=== PATIENT | male | born 1950 | race Caucasian/White ===

== ENCOUNTER → 2016-10-09 | Outpatient (CLI) | payer MEDICARE, OTHER ==
[2016-10-09 06:47] LABS: INR 3.36
== END ==
LOC: M LAB 06:08
PROVIDERS: ATTEND Physician Assistant
DX: Q23.1 Congenital insufficiency of aortic valve (principal); Z95.2 Presence of prosthetic heart valve; Z79.01 Long term (current) use of anticoagulants; Z51.81 Encounter for therapeutic drug level monitoring

== ENCOUNTER → 2016-11-20 | Outpatient (CLI) | payer MEDICARE, OTHER ==
[2016-11-20 08:10] LABS: INR 2.02
== END ==
LOC: M LAB 07:15
PROVIDERS: ATTEND Nurse Practitioner Family
DX: I35.1 Nonrheumatic aortic (valve) insufficiency (principal); Z95.2 Presence of prosthetic heart valve; Z51.81 Encounter for therapeutic drug level monitoring; Z79.01 Long term (current) use of anticoagulants

== ENCOUNTER → 2016-12-04 | Outpatient (CLI) | payer MEDICARE, OTHER | LOC: M LAB 06:26 | PROVIDERS: ATTEND Nurse Practitioner Family | DX: Q23.1 Congenital insufficiency of aortic valve (principal); Z95.2 Presence of prosthetic heart valve ==

== ENCOUNTER → 2017-01-11 | Outpatient (CLI) | payer MEDICARE, OTHER ==
[2017-01-11 06:49] LABS: INR 3.17
== END ==
LOC: M LAB 06:21
PROVIDERS: ATTEND Nurse Practitioner Family
DX: Q23.1 Congenital insufficiency of aortic valve (principal); Z95.2 Presence of prosthetic heart valve

== ENCOUNTER → 2017-02-13 | Outpatient (CLI) | payer MEDICARE, OTHER ==
[2017-02-13 15:08] LABS: INR 2.54
== END ==
LOC: M LAB 13:47
PROVIDERS: ATTEND Physician Assistant
DX: Q23.1 Congenital insufficiency of aortic valve (principal)

== ENCOUNTER → 2017-03-20 | Outpatient (CLI) | payer MEDICARE, OTHER ==
[2017-03-20 07:05] LABS: MEAN CORPUSCULAR HEMOGLOBIN 30.5 pg (27.0-33.0); MEAN CORPUSCULAR HGB CONC 33.6 g/dl (32.0-36.5); MEAN CORPUSCULAR VOLUME 90.8 fl (80.0-96.0); RED CELL DISTRIBUTION WIDTH 14.1 % (11.5-14.5); WHITE BLOOD COUNT 5.5 K/mm3 (4.0-10.0)
[2017-03-20 07:27] LABS: ALBUMIN/GLOBULIN RATIO 1.48 (1.00-1.93); ALKALINE PHOSPHATASE 47 U/L (45-117); ALT/SGPT 43 U/L (12-78); ANION GAP 4 MEQ/L (8-16); AST/SGOT 24 U/L (15-37); BILIRUBIN,TOTAL 0.6 MG/DL (0.2-1.0); BLOOD UREA NITROGEN 21 MG/DL (7-18); CALCIUM LEVEL 8.9 MG/DL (8.8-10.2); CARBON DIOXIDE LEVEL 30 MEQ/L (21-32); CHLORIDE LEVEL 103 MEQ/L (98-107); CHOLESTEROL LEVEL 203 MG/DL (<200); CREATININE FOR GFR 0.93 MG/DL (0.70-1.30); GLOMERULAR FILTRATION RATE > 60.0 (>49); GLUCOSE, FASTING 107 MG/DL (80-110); POTASSIUM SERUM 4.3 MEQ/L (3.5-5.1); SODIUM LEVEL 137 MEQ/L (136-145); TOTAL PROTEIN 6.7 GM/DL (6.4-8.2); TRIGLYCERIDES LEVEL 149 MG/DL (<150)
== END ==
LOC: M LAB 06:16
PROVIDERS: ATTEND Physician Assistant
DX: I11.9 Hypertensive heart disease without heart failure (principal); E78.00 Pure hypercholesterolemia, unspecified; Q23.1 Congenital insufficiency of aortic valve; Z79.01 Long term (current) use of anticoagulants

== ENCOUNTER → 2017-04-16 | Outpatient (CLI) | payer MEDICARE, OTHER ==
[2017-04-16 06:51] LABS: INR 1.57
== END ==
LOC: M LAB 06:08
PROVIDERS: ATTEND Physician Assistant
DX: Z95.2 Presence of prosthetic heart valve (principal)

== ENCOUNTER → 2017-04-24 | Outpatient (CLI) | payer MEDICARE, OTHER ==
[2017-04-24 06:46] LABS: INR 2.27
== END ==
LOC: M LAB 06:03
PROVIDERS: ATTEND Nurse Practitioner Family
DX: Q23.1 Congenital insufficiency of aortic valve (principal)

== ENCOUNTER → 2017-05-15 | Outpatient (CLI) | payer MEDICARE, OTHER ==
[2017-05-15 10:07] LABS: INR 3.05
== END ==
LOC: M LAB 09:21
PROVIDERS: ATTEND Nurse Practitioner Family
DX: Q23.1 Congenital insufficiency of aortic valve (principal); Z95.2 Presence of prosthetic heart valve; Z79.01 Long term (current) use of anticoagulants

== ENCOUNTER → 2017-06-28 | Outpatient (CLI) | payer MEDICARE, OTHER ==
[2017-06-28 06:57] LABS: INR 2.25
== END ==
LOC: M LAB 06:13
PROVIDERS: ATTEND Nurse Practitioner Family
DX: Q23.1 Congenital insufficiency of aortic valve (principal)

== ENCOUNTER → 2017-07-12 | Outpatient (CLI) | payer MEDICARE, OTHER ==
[2017-07-12 08:00] LABS: INR 2.65
== END ==
LOC: M LAB 07:05
PROVIDERS: ATTEND Physician Assistant
DX: Q23.1 Congenital insufficiency of aortic valve (principal)

== ENCOUNTER → 2017-08-16 | Outpatient (CLI) | payer MEDICARE, OTHER ==
[2017-08-16 07:52] LABS: INR 2.24
== END ==
LOC: M LAB 06:28
PROVIDERS: ATTEND Physician Assistant
DX: Q23.1 Congenital insufficiency of aortic valve (principal); Z95.2 Presence of prosthetic heart valve; R31.9 Hematuria, unspecified

== ENCOUNTER → 2017-08-16 | Outpatient (REF) | payer MEDICARE, OTHER | LOC: M LAB REF 09:09 | PROVIDERS: ATTEND Emergency Medicine | DX: R31.9 Hematuria, unspecified (principal) ==

== ENCOUNTER → 2017-08-20 | Outpatient (CLI) | payer MEDICARE, OTHER ==
[2017-08-20 06:32] LABS: INR 1.83
== END ==
LOC: M LAB 06:10
PROVIDERS: ATTEND Physician Assistant
DX: Q23.1 Congenital insufficiency of aortic valve (principal); Z95.2 Presence of prosthetic heart valve

== ENCOUNTER → 2017-09-09 | Outpatient (CLI) | payer MEDICARE, OTHER ==
[2017-09-09 07:31] LABS: MEAN CORPUSCULAR HEMOGLOBIN 29.8 pg (27.0-33.0); MEAN CORPUSCULAR VOLUME 90.4 fl (80.0-96.0); PLATELET COUNT, AUTOMATED 195 10^3/uL (150-450); RED CELL DISTRIBUTION WIDTH 14.2 % (11.5-14.5); WHITE BLOOD COUNT 5.1 10^3/uL (4.0-10.0)
[2017-09-09 07:44] LABS: INR 2.32
[2017-09-09 07:45] LABS: ALBUMIN 4.2 GM/DL (3.2-5.2); ALKALINE PHOSPHATASE 45 U/L (45-117); ALT/SGPT 42 U/L (12-78); ANION GAP 5 MEQ/L (8-16); AST/SGOT 25 U/L (7-37); BILIRUBIN,TOTAL 0.7 MG/DL (0.2-1.0); BLOOD UREA NITROGEN 25 MG/DL (7-18); CALCIUM LEVEL 8.6 MG/DL (8.8-10.2); CARBON DIOXIDE LEVEL 32 MEQ/L (21-32); CHLORIDE LEVEL 105 MEQ/L (98-107); GLOMERULAR FILTRATION RATE > 60.0 (>49); GLUCOSE, FASTING 110 MG/DL (80-110); POTASSIUM SERUM 4.3 MEQ/L (3.5-5.1); SODIUM LEVEL 142 MEQ/L (136-145); TOTAL PROTEIN 7.2 GM/DL (6.4-8.2)
== END ==
LOC: M LAB 06:17
PROVIDERS: ATTEND Physician Assistant
DX: I11.9 Hypertensive heart disease without heart failure (principal); Q23.1 Congenital insufficiency of aortic valve; Z95.2 Presence of prosthetic heart valve; E78.00 Pure hypercholesterolemia, unspecified

== ENCOUNTER → 2017-09-19 | Outpatient (CLI) | payer MEDICARE, OTHER ==
[2017-09-19 07:19] LABS: INR 1.88
== END ==
LOC: M LAB 06:24
PROVIDERS: ATTEND Physician Assistant
DX: Z95.2 Presence of prosthetic heart valve (principal)

== ENCOUNTER → 2018-01-21 | Outpatient (CLI) | payer MEDICARE, OTHER ==
[2018-01-21 07:34] LABS: INR 2.21; PROTHROMBIN TIME 25.3 SECONDS (12.4-14.5)
== END ==
LOC: M LAB 06:54
DX: Z51.81 Encounter for therapeutic drug level monitoring (principal); Z79.01 Long term (current) use of anticoagulants; Z95.2 Presence of prosthetic heart valve
CPT/HCPCS: 85610

== ENCOUNTER → 2018-02-04 | Outpatient (CLI) | payer MEDICARE, OTHER ==
[2018-02-04 07:18] LABS: INR 2.44; PROTHROMBIN TIME 27.5 SECONDS (12.4-14.5)
== END ==
LOC: M LAB 06:26
DX: Z51.81 Encounter for therapeutic drug level monitoring (principal); Z79.01 Long term (current) use of anticoagulants; Z95.2 Presence of prosthetic heart valve
CPT/HCPCS: 85610

== ENCOUNTER → 2018-02-20 | Outpatient (CLI) | payer MEDICARE, OTHER ==
[2018-02-20 06:32] LABS: INR 3.63
== END ==
LOC: M LAB 06:04
DX: Z95.2 Presence of prosthetic heart valve (principal); Z79.01 Long term (current) use of anticoagulants
CPT/HCPCS: 85610

== ENCOUNTER → 2018-03-07 | Outpatient (CLI) | payer MEDICARE, OTHER ==
[2018-03-07 06:33] LABS: HEMATOCRIT 42.8 % (42.0-52.0); MEAN CORPUSCULAR HEMOGLOBIN 29.5 pg (27.0-33.0); MEAN CORPUSCULAR HGB CONC 32.7 g/dl (32.0-36.5); MEAN CORPUSCULAR VOLUME 90.1 fl (80.0-96.0); PLATELET COUNT, AUTOMATED 225 10^3/uL (150-450); RED BLOOD COUNT 4.75 10^6/uL (4.30-6.10); WHITE BLOOD COUNT 7.8 10^3/uL (4.0-10.0)
[2018-03-07 06:41] LABS: PROTHROMBIN TIME 36.8 SECONDS (12.4-14.5)
[2018-03-07 07:02] LABS: ALBUMIN 4.2 GM/DL (3.2-5.2); ALBUMIN/GLOBULIN RATIO 1.45 (1.00-1.93); ALKALINE PHOSPHATASE 51 U/L (45-117); ALT/SGPT 58 U/L (12-78); ANION GAP 6 MEQ/L (8-16); AST/SGOT 31 U/L (7-37); BILIRUBIN,TOTAL 0.8 MG/DL (0.2-1.0); BLOOD UREA NITROGEN 30 MG/DL (7-18); CALCIUM LEVEL 8.5 MG/DL (8.8-10.2); CARBON DIOXIDE LEVEL 28 MEQ/L (21-32); CHLORIDE LEVEL 105 MEQ/L (98-107); CHOLESTEROL LEVEL 201 MG/DL (<200); CHOLESTEROL RISK RATIO 3.941 (<5); CREATININE FOR GFR 1.09 MG/DL (0.70-1.30); GLOMERULAR FILTRATION RATE > 60.0 (>49); GLUCOSE, FASTING 108 MG/DL (70-100); HDL CHOLESTEROL 51 MG/DL (>40); LDL CHOLESTEROL 114.8 MG/DL (<100); NON-HDL-C 150 MG/DL; POTASSIUM SERUM 4.4 MEQ/L (3.5-5.1); SODIUM LEVEL 139 MEQ/L (136-145); TOTAL PROTEIN 7.1 GM/DL (6.4-8.2); TRIGLYCERIDES LEVEL 176 MG/DL (<150)
== END ==
LOC: M LAB 06:07
DX: I11.9 Hypertensive heart disease without heart failure (principal); E78.00 Pure hypercholesterolemia, unspecified; Z79.01 Long term (current) use of anticoagulants
CPT/HCPCS: 80053

== ENCOUNTER → 2018-03-10 | Outpatient (CLI) | payer MEDICARE, OTHER ==
[2018-03-10 07:22] LABS: INR 4.13; PROTHROMBIN TIME 42.1 SECONDS (12.4-14.5)
== END ==
LOC: M LAB 06:32
DX: Z95.2 Presence of prosthetic heart valve (principal)
CPT/HCPCS: 85610

== ENCOUNTER → 2018-03-18 | Outpatient (CLI) | payer MEDICARE, OTHER ==
[2018-03-18 07:28] LABS: INR 1.65
== END ==
LOC: M LAB 06:16
DX: Z95.2 Presence of prosthetic heart valve (principal)
CPT/HCPCS: 85610

== ENCOUNTER → 2018-03-25 | Outpatient (CLI) | payer MEDICARE, OTHER ==
[2018-03-25 07:18] LABS: INR 2.18; PROTHROMBIN TIME 25.1 SECONDS (12.4-14.5)
== END ==
LOC: M LAB 06:23
DX: Z95.2 Presence of prosthetic heart valve (principal)
CPT/HCPCS: 85610

== ENCOUNTER → 2018-04-01 | Outpatient (CLI) | payer MEDICARE, OTHER ==
[2018-04-01 07:12] LABS: INR 2.17
== END ==
LOC: M LAB 06:14
DX: Z95.2 Presence of prosthetic heart valve (principal)
CPT/HCPCS: 85610

== ENCOUNTER → 2018-04-14 | Outpatient (CLI) | payer MEDICARE, OTHER ==
[2018-04-14 07:07] LABS: INR 2.17; PROTHROMBIN TIME 24.6 SECONDS (12.1-14.4)
== END ==
LOC: M LAB 06:09
DX: Z95.2 Presence of prosthetic heart valve (principal)
CPT/HCPCS: 85610

== ENCOUNTER → 2018-05-07 | Outpatient (CLI) | payer MEDICARE, OTHER ==
[2018-05-07 07:10] LABS: INR 2.79
== END ==
LOC: M LAB 06:13
DX: Z79.01 Long term (current) use of anticoagulants (principal)
CPT/HCPCS: 85610

== ENCOUNTER → 2018-06-12 | Outpatient (CLI) | payer MEDICARE, OTHER ==
[2018-06-12 07:30] LABS: INR 2.32
== END ==
LOC: M LAB 06:23
DX: Z95.2 Presence of prosthetic heart valve (principal)
CPT/HCPCS: 85610

== ENCOUNTER 2018-06-27 08:49 | Day surgery (SDC) | payer MEDICARE, OTHER ==
[2018-06-26] MEDS: AMPICILLIN SOD 2 GM in D5W MINI-BAG PLUS 100 ML IV (09:20)
[2018-06-27] MEDS: NS 1,000 ML IV (06:00)
[2018-06-27] MEDS ORDERED: AMPICILLIN 2 GM VIAL As Ordered (09:19)
[2018-06-27] MEDS ORDERED: GENTAMICIN SULF INJ 80MG/2ML VIAL (J1580) As Ordered (09:20)
[2018-06-27] MEDS ORDERED: LIDOCAINE 2% INJ 100 MG/5 ML SDV (FOR ANES.) As Ordered (09:21)
[2018-06-27] MEDS ORDERED: PROPOFOL 200 MG/20 ML VIAL As Ordered (09:21)
[2018-06-27] MEDS: GENTAMICIN 80 MG in APPROPRIATE DILUENT 1 EA IV (09:54)
== END 2018-06-27 11:10 | disposition home or self-care (01) ==
LOC: M OPP 08:49
DX: Z12.11 Encounter for screening for malignant neoplasm of colon (principal); K62.1 Rectal polyp; D12.5 Benign neoplasm of sigmoid colon; D12.3 Benign neoplasm of transverse colon; K64.0 First degree hemorrhoids; E78.5 Hyperlipidemia, unspecified; Z95.2 Presence of prosthetic heart valve; K21.9 Gastro-esophageal reflux disease without esophagitis; R12 Heartburn; Z86.718 Personal history of other venous thrombosis and embolism; R06.02 Shortness of breath; M19.90 Unspecified osteoarthritis, unspecified site; R06.83 Snoring; Z87.891 Personal history of nicotine dependence; Z79.82 Long term (current) use of aspirin; Z79.899 Other long term (current) drug therapy; Z79.01 Long term (current) use of anticoagulants
CPT/HCPCS: 45385

== ENCOUNTER → 2018-07-03 | Outpatient (CLI) | payer MEDICARE, OTHER ==
[2018-07-03 06:41] LABS: INR 1.37; PROTHROMBIN TIME 17.1 SECONDS (12.1-14.4)
== END ==
LOC: M LAB 06:10
DX: Z51.81 Encounter for therapeutic drug level monitoring (principal); Z79.01 Long term (current) use of anticoagulants; Z95.2 Presence of prosthetic heart valve
CPT/HCPCS: 85610

== ENCOUNTER → 2018-07-15 | Outpatient (CLI) | payer MEDICARE, OTHER ==
[2018-07-15 07:19] LABS: INR 1.79; PROTHROMBIN TIME 21.1 SECONDS (12.1-14.4)
== END ==
LOC: M LAB 06:23
DX: Z95.2 Presence of prosthetic heart valve (principal)
CPT/HCPCS: 85610

== ENCOUNTER → 2018-07-22 | Outpatient (CLI) | payer MEDICARE, OTHER ==
[2018-07-22 07:14] LABS: INR 2.52; PROTHROMBIN TIME 27.7 SECONDS (12.1-14.4)
== END ==
LOC: M LAB 06:14
DX: Z95.2 Presence of prosthetic heart valve (principal)
CPT/HCPCS: 85610

== ENCOUNTER → 2018-08-08 | Outpatient (CLI) | payer MEDICARE, OTHER ==
[2018-08-08 07:38] LABS: INR 2.49; PROTHROMBIN TIME 27.4 SECONDS (12.1-14.4)
== END ==
LOC: M LAB 06:15
DX: Z95.2 Presence of prosthetic heart valve (principal); Z79.01 Long term (current) use of anticoagulants
CPT/HCPCS: 85610

== ENCOUNTER → 2018-09-02 | Outpatient (CLI) | payer MEDICARE, OTHER ==
[2018-09-02 07:20] LABS: INR 2.25; PROTHROMBIN TIME 25.3 SECONDS (12.1-14.4)
== END ==
LOC: M LAB 06:36
DX: Z95.2 Presence of prosthetic heart valve (principal)
CPT/HCPCS: 85610

== ENCOUNTER → 2018-09-11 | Outpatient (CLI) | payer MEDICARE, OTHER ==
[2018-09-11 06:53] LABS: HEMATOCRIT 41.4 % (42.0-52.0); HEMOGLOBIN 13.7 g/dl (13.5-17.5); MEAN CORPUSCULAR HGB CONC 33.1 g/dl (32.0-36.5); MEAN CORPUSCULAR VOLUME 90.8 fl (80.0-96.0); PLATELET COUNT, AUTOMATED 182 10^3/uL (150-450); RED BLOOD COUNT 4.56 10^6/uL (4.30-6.10); WHITE BLOOD COUNT 6.7 10^3/uL (4.0-10.0)
[2018-09-11 07:02] LABS: PROTHROMBIN TIME 33.5 SECONDS (12.1-14.4)
[2018-09-11 07:22] LABS: ANION GAP 8 MEQ/L (8-16); BLOOD UREA NITROGEN 30 MG/DL (7-18); CALCIUM LEVEL 8.1 MG/DL (8.8-10.2); CARBON DIOXIDE LEVEL 27 MEQ/L (21-32); CHLORIDE LEVEL 106 MEQ/L (98-107); CREATININE FOR GFR 1.01 MG/DL (0.70-1.30); GLOMERULAR FILTRATION RATE > 60.0 (>49); GLUCOSE, FASTING 107 MG/DL (70-100); POTASSIUM SERUM 4.4 MEQ/L (3.5-5.1); SODIUM LEVEL 141 MEQ/L (136-145)
== END ==
LOC: M LAB 06:14
DX: Z51.81 Encounter for therapeutic drug level monitoring (principal); Z79.01 Long term (current) use of anticoagulants; I11.9 Hypertensive heart disease without heart failure; Q23.1 Congenital insufficiency of aortic valve; Z95.2 Presence of prosthetic heart valve
CPT/HCPCS: 80048

== ENCOUNTER → 2018-10-14 | Outpatient (CLI) | payer MEDICARE, OTHER ==
[~2018-10-14] MED LIST: ASPI1TAB PO; COUM1TAB17 PO; COUM7.5T PO; LISI40TA PO; LOVA10TA PO
[2018-10-14 07:01] LABS: INR 2.21; PROTHROMBIN TIME 24.9 SECONDS (12.1-14.4)
== END ==
LOC: M LAB 06:16
PROVIDERS: ATTEND Physician Assistant
DX: Z51.81 Encounter for therapeutic drug level monitoring (principal); Z79.01 Long term (current) use of anticoagulants; Z95.2 Presence of prosthetic heart valve

== ENCOUNTER → 2019-01-29 | Outpatient (CLI) | payer MEDICARE, OTHER ==
[~2019-01-29] MED LIST changes: -ASPI1TAB PO; +ASPI81TA26 PO
[2019-01-29 07:01] LABS: INR 2.55
== END ==
LOC: M LAB 06:24
PROVIDERS: ATTEND Physician Assistant
DX: Z95.2 Presence of prosthetic heart valve (principal); Z79.01 Long term (current) use of anticoagulants

== ENCOUNTER → 2019-03-06 | Outpatient (CLI) | payer MEDICARE, OTHER ==
[2019-03-06 07:33] LABS: INR 3.11; PROTHROMBIN TIME 32.7 SECONDS (12.1-14.4)
== END ==
LOC: M LAB 06:37
PROVIDERS: ATTEND Physician Assistant
DX: Z95.2 Presence of prosthetic heart valve (principal); Z79.01 Long term (current) use of anticoagulants

== ENCOUNTER → 2019-03-27 | Outpatient (CLI) | payer MEDICARE, OTHER ==
[2019-03-27 07:02] LABS: HEMATOCRIT 43.2 % (42.0-52.0); HEMOGLOBIN 14.2 g/dl (13.5-17.5); MEAN CORPUSCULAR HEMOGLOBIN 29.6 pg (27.0-33.0); MEAN CORPUSCULAR HGB CONC 32.9 g/dl (32.0-36.5); PLATELET COUNT, AUTOMATED 198 10^3/uL (150-450); WHITE BLOOD COUNT 5.1 10^3/uL (4.0-10.0)
[2019-03-27 07:26] LABS: ALT/SGPT 42 U/L (12-78); BILIRUBIN,TOTAL 0.6 MG/DL (0.2-1.0); BLOOD UREA NITROGEN 25 MG/DL (7-18); CALCIUM LEVEL 8.8 MG/DL (8.8-10.2); CARBON DIOXIDE LEVEL 30 MEQ/L (21-32); CHLORIDE LEVEL 105 MEQ/L (98-107); CHOLESTEROL LEVEL 196 MG/DL (<200); CHOLESTEROL RISK RATIO 3.698 (<5); CREATININE FOR GFR 1.21 MG/DL (0.70-1.30); GLOMERULAR FILTRATION RATE > 60.0 (>49); GLUCOSE, FASTING 104 MG/DL (70-100); HDL CHOLESTEROL 53 MG/DL (>40); LDL CHOLESTEROL 107 MG/DL (<100); NON-HDL-C 143 MG/DL; POTASSIUM SERUM 4.3 MEQ/L (3.5-5.1); SODIUM LEVEL 142 MEQ/L (136-145); TRIGLYCERIDES LEVEL 180 MG/DL (<150)
== END ==
LOC: M LAB 06:09
PROVIDERS: ATTEND Physician Assistant
DX: I11.9 Hypertensive heart disease without heart failure (principal); E78.00 Pure hypercholesterolemia, unspecified; Z95.2 Presence of prosthetic heart valve; Z79.01 Long term (current) use of anticoagulants

== ENCOUNTER → 2019-04-01 | Outpatient (CLI) | payer MEDICARE, OTHER ==
[2019-04-01 07:09] LABS: INR 2.84; PROTHROMBIN TIME 29.7 SECONDS (11.8-14.0)
== END ==
LOC: M LAB 06:07
PROVIDERS: ATTEND Physician Assistant
DX: Z95.2 Presence of prosthetic heart valve (principal); Z79.01 Long term (current) use of anticoagulants

== ENCOUNTER → 2019-05-05 | Outpatient (CLI) | payer MEDICARE, OTHER ==
[2019-05-05 07:18] LABS: INR 3.96; PROTHROMBIN TIME 38.8 SECONDS (11.8-14.0)
== END ==
LOC: M LAB 06:25
PROVIDERS: ATTEND Physician Assistant
DX: Z95.2 Presence of prosthetic heart valve (principal)

== ENCOUNTER → 2019-05-14 | Outpatient (CLI) | payer MEDICARE, OTHER ==
[2019-05-14 07:13] LABS: INR 2.64
== END ==
LOC: M LAB 06:10
PROVIDERS: ATTEND Physician Assistant
DX: Z79.01 Long term (current) use of anticoagulants (principal); Z95.2 Presence of prosthetic heart valve

== ENCOUNTER → 2019-06-11 | Outpatient (CLI) | payer MEDICARE, OTHER ==
[2019-06-11 07:20] LABS: INR 3.13; PROTHROMBIN TIME 32.1 SECONDS (11.8-14.0)
== END ==
LOC: M LAB 06:09
PROVIDERS: ATTEND Physician Assistant
DX: Z95.2 Presence of prosthetic heart valve (principal)

== ENCOUNTER → 2019-07-21 | Outpatient (CLI) | payer MEDICARE, OTHER ==
[2019-07-21 06:48] LABS: INR 2.94; PROTHROMBIN TIME 30.6 SECONDS (11.8-14.0)
== END ==
LOC: M LAB 06:06
PROVIDERS: ATTEND Physician Assistant
DX: Z95.2 Presence of prosthetic heart valve (principal); Z79.01 Long term (current) use of anticoagulants

== ENCOUNTER → 2019-08-17 | Outpatient (CLI) | payer MEDICARE, OTHER ==
[2019-08-17 07:39] LABS: INR 2.68; PROTHROMBIN TIME 28.4 SECONDS (11.8-14.0)
== END ==
LOC: M LAB 06:10
PROVIDERS: ATTEND Physician Assistant
DX: Z51.81 Encounter for therapeutic drug level monitoring (principal); Z79.01 Long term (current) use of anticoagulants; Z95.2 Presence of prosthetic heart valve

== ENCOUNTER → 2020-01-01 | Outpatient (CLI) | payer MEDICARE, OTHER ==
[2020-01-01 07:05] LABS: INR 2.58; PROTHROMBIN TIME 27.6 SECONDS (11.8-14.0)
== END ==
LOC: M LAB 06:15
PROVIDERS: ATTEND Physician Assistant
DX: Z79.01 Long term (current) use of anticoagulants (principal)

== ENCOUNTER → 2020-02-02 | Outpatient (CLI) | payer MEDICARE, OTHER ==
[2020-02-02 07:24] LABS: INR 2.96; PROTHROMBIN TIME 30.7 SECONDS (11.8-14.0)
== END ==
LOC: M LAB 06:44
PROVIDERS: ATTEND Physician Assistant
DX: Z51.81 Encounter for therapeutic drug level monitoring (principal); Z95.2 Presence of prosthetic heart valve; Z79.01 Long term (current) use of anticoagulants

== ENCOUNTER → 2020-03-03 | Outpatient (CLI) | payer MEDICARE, OTHER ==
[2020-03-03 06:49] LABS: INR 2.55; PROTHROMBIN TIME 27.3 SECONDS (11.8-14.0)
== END ==
LOC: M LAB 06:14
PROVIDERS: ATTEND Physician Assistant
DX: Z95.2 Presence of prosthetic heart valve (principal); Z79.01 Long term (current) use of anticoagulants

== ENCOUNTER → 2020-03-08 | Outpatient (CLI) | payer MEDICARE, OTHER ==
[~2020-03-08] MED LIST changes: -COUM7.5T PO; +COUM7.5T6 PO
[2020-03-08 07:12] LABS: HEMATOCRIT 42.7 % (42.0-52.0); HEMOGLOBIN 14.1 g/dl (13.5-17.5); MEAN CORPUSCULAR HEMOGLOBIN 29.9 pg (27.0-33.0); MEAN CORPUSCULAR VOLUME 90.5 fl (80.0-96.0); PLATELET COUNT, AUTOMATED 206 10^3/uL (150-450); RED BLOOD COUNT 4.72 10^6/uL (4.30-6.10); WHITE BLOOD COUNT 5.3 10^3/uL (4.0-10.0)
[2020-03-08 07:43] LABS: ALBUMIN 4.2 GM/DL (3.2-5.2); ALT/SGPT 50 U/L (12-78); BILIRUBIN,TOTAL 0.7 MG/DL (0.2-1.0); BLOOD UREA NITROGEN 23 MG/DL (7-18); CALCIUM LEVEL 8.7 MG/DL (8.8-10.2); CARBON DIOXIDE LEVEL 29 MEQ/L (21-32); CHLORIDE LEVEL 106 MEQ/L (98-107); CHOLESTEROL LEVEL 212 MG/DL (<200); CHOLESTEROL RISK RATIO 3.719 (<5); CREATININE FOR GFR 0.94 MG/DL (0.70-1.30); GLOMERULAR FILTRATION RATE > 60.0 (>49); GLUCOSE, FASTING 113 MG/DL (70-100); HDL CHOLESTEROL 57 MG/DL (>40); LDL CHOLESTEROL 121 MG/DL (<100); NON-HDL-C 155 MG/DL; POTASSIUM SERUM 4.4 MEQ/L (3.5-5.1); SODIUM LEVEL 138 MEQ/L (136-145); TRIGLYCERIDES LEVEL 171 MG/DL (<150)
== END ==
LOC: M LAB 06:47
PROVIDERS: ATTEND Physician Assistant
DX: Q23.1 Congenital insufficiency of aortic valve (principal); Z95.2 Presence of prosthetic heart valve; I11.9 Hypertensive heart disease without heart failure; E78.00 Pure hypercholesterolemia, unspecified

== ENCOUNTER → 2020-04-22 | Outpatient (CLI) | payer MEDICARE, OTHER ==
[2020-04-22 06:44] LABS: INR 2.54; PROTHROMBIN TIME 27.2 SECONDS (11.8-14.0)
== END ==
LOC: M LAB 06:08
PROVIDERS: ATTEND Physician Assistant
DX: Q23.1 Congenital insufficiency of aortic valve (principal); Z95.2 Presence of prosthetic heart valve; Z79.01 Long term (current) use of anticoagulants

== ENCOUNTER → 2020-05-25 | Outpatient (CLI) | payer MEDICARE, OTHER ==
[2020-05-25 07:28] LABS: INR 3.15; PROTHROMBIN TIME 33.1 SECONDS (11.8-14.0)
== END ==
LOC: M LAB 06:40
PROVIDERS: ATTEND Physician Assistant
DX: Q23.1 Congenital insufficiency of aortic valve (principal); Z95.2 Presence of prosthetic heart valve; Z79.01 Long term (current) use of anticoagulants

== ENCOUNTER → 2020-06-15 | Outpatient (CLI) | payer MEDICARE, OTHER ==
[2020-06-15 07:21] LABS: INR 3.14
== END ==
LOC: M LAB 06:18
PROVIDERS: ATTEND Physician Assistant
DX: Q23.1 Congenital insufficiency of aortic valve (principal); Z95.2 Presence of prosthetic heart valve; Z79.01 Long term (current) use of anticoagulants

== ENCOUNTER → 2020-07-15 | Outpatient (CLI) | payer MEDICARE, OTHER ==
[2020-07-15 07:33] LABS: INR 3.04; PROTHROMBIN TIME 32.1 SECONDS (12.5-14.3)
== END ==
LOC: M LAB 06:13
PROVIDERS: ATTEND Physician Assistant
DX: Q23.1 Congenital insufficiency of aortic valve (principal); Z95.2 Presence of prosthetic heart valve; Z79.01 Long term (current) use of anticoagulants

== ENCOUNTER → 2020-08-29 | Outpatient (CLI) | payer MEDICARE, OTHER ==
[2020-08-29 12:09] LABS: HEMATOCRIT 43.9 % (42.0-52.0); HEMOGLOBIN 14.2 g/dl (13.5-17.5); MEAN CORPUSCULAR HEMOGLOBIN 30.1 pg (27.0-33.0); MEAN CORPUSCULAR HGB CONC 32.3 g/dl (32.0-36.5); PLATELET COUNT, AUTOMATED 207 10^3/uL (150-450); RED BLOOD COUNT 4.72 10^6/uL (4.30-6.10); WHITE BLOOD COUNT 5.8 10^3/uL (4.0-10.0)
[2020-08-29 12:19] LABS: INR 4.02; PROTHROMBIN TIME 40.1 SECONDS (12.5-14.3)
[2020-08-29 12:35] LABS: BLOOD UREA NITROGEN 21 MG/DL (7-18); CALCIUM LEVEL 9.5 MG/DL (8.8-10.2); CARBON DIOXIDE LEVEL 32 MEQ/L (21-32); CHLORIDE LEVEL 106 MEQ/L (98-107); CREATININE FOR GFR 1.03 MG/DL (0.70-1.30); GLOMERULAR FILTRATION RATE > 60.0 (>49); GLUCOSE, FASTING 96 MG/DL (70-100); POTASSIUM SERUM 4.5 MEQ/L (3.5-5.1); SODIUM LEVEL 140 MEQ/L (136-145)
== END ==
LOC: M LAB 11:18
PROVIDERS: ATTEND Physician Assistant
DX: I11.9 Hypertensive heart disease without heart failure (principal); Z95.2 Presence of prosthetic heart valve

== ENCOUNTER → 2020-09-05 | Outpatient (CLI) | payer MEDICARE, OTHER ==
[2020-09-05 07:17] LABS: INR 2.97; PROTHROMBIN TIME 31.6 SECONDS (12.5-14.3)
== END ==
LOC: M LAB 06:07
PROVIDERS: ATTEND Physician Assistant
DX: Q23.1 Congenital insufficiency of aortic valve (principal); Z95.2 Presence of prosthetic heart valve; Z79.01 Long term (current) use of anticoagulants

== ENCOUNTER → 2020-09-12 | Outpatient (CLI) | payer MEDICARE, OTHER ==
[2020-09-12 07:00] LABS: INR 2.39; PROTHROMBIN TIME 26.6 SECONDS (12.5-14.3)
== END ==
LOC: M LAB 06:32
PROVIDERS: ATTEND Physician Assistant
DX: Q23.1 Congenital insufficiency of aortic valve (principal); Z95.2 Presence of prosthetic heart valve; Z79.01 Long term (current) use of anticoagulants

== ENCOUNTER → 2020-09-27 | Outpatient (CLI) | payer MEDICARE, OTHER ==
[2020-09-27 06:42] LABS: INR 2.05; PROTHROMBIN TIME 23.6 SECONDS (12.5-14.3)
== END ==
LOC: M LAB 06:07
PROVIDERS: ATTEND Physician Assistant
DX: Q23.1 Congenital insufficiency of aortic valve (principal); Z95.2 Presence of prosthetic heart valve; Z79.01 Long term (current) use of anticoagulants

== ENCOUNTER → 2020-10-20 | Outpatient (CLI) | payer SELFPAY | LOC: M LABSMTC 14:05 | PROVIDERS: ATTEND Pediatrics | DX: Z20.822 Contact with and (suspected) exposure to COVID-19 (principal) ==

== ENCOUNTER → 2020-10-26 | Outpatient (CLI) | payer MEDICARE, OTHER ==
[~2020-10-26] MED LIST changes: -LISI40TA PO; +LISI40TA4 PO
[2020-10-26 07:14] LABS: INR 3.23; PROTHROMBIN TIME 33.8 SECONDS (12.5-14.3)
== END ==
LOC: M LAB 06:13
PROVIDERS: ATTEND Physician Assistant
DX: Q23.1 Congenital insufficiency of aortic valve (principal); Z95.2 Presence of prosthetic heart valve; Z79.01 Long term (current) use of anticoagulants

== ENCOUNTER → 2020-11-24 | Outpatient (CLI) | payer MEDICARE, OTHER ==
[2020-11-24 09:30] LABS: INR 2.7; PROTHROMBIN TIME 29.3 SECONDS (12.5-14.3)
== END ==
LOC: M LAB 08:03
PROVIDERS: ATTEND Physician Assistant
DX: Q23.1 Congenital insufficiency of aortic valve (principal); Z95.2 Presence of prosthetic heart valve; Z79.01 Long term (current) use of anticoagulants

== ENCOUNTER → 2020-12-27 | Outpatient (CLI) | payer MEDICARE, OTHER ==
[2020-12-27 07:25] LABS: INR 1.87; PROTHROMBIN TIME 21.9 SECONDS (12.5-14.3)
== END ==
LOC: M LAB 06:22
PROVIDERS: ATTEND Physician Assistant
DX: Q23.1 Congenital insufficiency of aortic valve (principal)

== ENCOUNTER → 2021-01-17 | Outpatient (CLI) | payer MEDICARE, OTHER ==
[2021-01-17 06:44] LABS: INR 2.68; PROTHROMBIN TIME 29.1 SECONDS (12.5-14.3)
== END ==
LOC: M LAB 06:05
PROVIDERS: ATTEND Physician Assistant
DX: Q23.1 Congenital insufficiency of aortic valve (principal); Z79.01 Long term (current) use of anticoagulants; Z95.2 Presence of prosthetic heart valve

== ENCOUNTER → 2021-02-17 | Outpatient (CLI) | payer MEDICARE, OTHER ==
[2021-02-17 06:44] LABS: INR 2.7; PROTHROMBIN TIME 29.3 SECONDS (12.5-14.3)
== END ==
LOC: M LAB 06:01
PROVIDERS: ATTEND Physician Assistant
DX: Z51.81 Encounter for therapeutic drug level monitoring (principal); Z79.01 Long term (current) use of anticoagulants; Q23.1 Congenital insufficiency of aortic valve; Z95.2 Presence of prosthetic heart valve

== ENCOUNTER → 2021-03-23 | Outpatient (CLI) | payer MEDICARE, OTHER ==
[2021-03-23 06:49] LABS: HEMATOCRIT 44.5 % (42.0-52.0); HEMOGLOBIN 14.4 g/dl (13.5-17.5); MEAN CORPUSCULAR HEMOGLOBIN 29.8 pg (27.0-33.0); MEAN CORPUSCULAR HGB CONC 32.4 g/dl (32.0-36.5); MEAN CORPUSCULAR VOLUME 91.9 fl (80.0-96.0); PLATELET COUNT, AUTOMATED 191 10^3/uL (150-450); RED BLOOD COUNT 4.84 10^6/uL (4.30-6.10); WHITE BLOOD COUNT 4.8 10^3/uL (4.0-10.0)
[2021-03-23 07:12] LABS: ALBUMIN 4.2 GM/DL (3.2-5.2); ALT/SGPT 44 U/L (12-78); BILIRUBIN,TOTAL 0.5 MG/DL (0.2-1.0); BLOOD UREA NITROGEN 21 MG/DL (7-18); CALCIUM LEVEL 9.1 MG/DL (8.8-10.2); CARBON DIOXIDE LEVEL 32 MEQ/L (21-32); CHLORIDE LEVEL 108 MEQ/L (98-107); CHOLESTEROL LEVEL 197 MG/DL (<200); CHOLESTEROL RISK RATIO 3.648 (<5); CREATININE FOR GFR 0.99 MG/DL (0.70-1.30); GLOMERULAR FILTRATION RATE > 60.0 (>49); GLUCOSE, FASTING 107 MG/DL (70-100); HDL CHOLESTEROL 54 MG/DL (>40); LDL CHOLESTEROL 109 MG/DL (<100); NON-HDL-C 143 MG/DL; POTASSIUM SERUM 4.6 MEQ/L (3.5-5.1); SODIUM LEVEL 142 MEQ/L (136-145); TRIGLYCERIDES LEVEL 168 MG/DL (<150)
== END ==
LOC: M LAB 06:13
PROVIDERS: ATTEND Physician Assistant
DX: Q23.1 Congenital insufficiency of aortic valve (principal); I11.9 Hypertensive heart disease without heart failure; E78.00 Pure hypercholesterolemia, unspecified; Z95.2 Presence of prosthetic heart valve

== ENCOUNTER → 2021-03-23 | Outpatient (CLI) | payer MEDICARE, OTHER ==
--- NOTE | 2021-03-23 09:57 | REP ---
INDICATION: AAA SCREENING COMPARISON: None. TECHNIQUE: Multiple ultrasonographic images of the abdominal aorta were obtained from the level of the celiac access to the aortoiliac bifurcation and the longitudinal and transverse scan planes along with color Doppler imaging. FINDINGS: The maximal AP dimension of the abdominal aorta as measured in the longitudinal scan plane is 1.9 cm. The proximal most portion of the abdominal aorta was unable to be interrogated by ultrasound due to the patient's intestinal gas pattern. IMPRESSION: No evidence of abdominal aortic aneurysm. Limitations as described above. <Electronically signed by Michael Rincon > 03/23/21 0942
== END ==
LOC: M RAD 06:17
PROVIDERS: ATTEND Family Medicine
DX: Z13.6 Encounter for screening for cardiovascular disorders (principal); F17.210 Nicotine dependence, cigarettes, uncomplicated; Q23.1 Congenital insufficiency of aortic valve; I11.9 Hypertensive heart disease without heart failure; E78.00 Pure hypercholesterolemia, unspecified; Z95.2 Presence of prosthetic heart valve

== ENCOUNTER → 2021-04-24 | Outpatient (CLI) | payer MEDICARE, OTHER ==
[2021-04-24 07:27] LABS: INR 2.95; PROTHROMBIN TIME 31.4 SECONDS (12.5-14.3)
== END ==
LOC: M LAB 06:41
PROVIDERS: ATTEND Physician Assistant
DX: Q23.1 Congenital insufficiency of aortic valve (principal); Z95.2 Presence of prosthetic heart valve; Z79.01 Long term (current) use of anticoagulants

== ENCOUNTER → 2021-05-22 | Outpatient (CLI) | payer MEDICARE, OTHER ==
[2021-05-22 07:02] LABS: INR 2.96; PROTHROMBIN TIME 31.1 SECONDS (12.7-14.5)
== END ==
LOC: M LAB 06:22
PROVIDERS: ATTEND Physician Assistant
DX: Z95.2 Presence of prosthetic heart valve (principal); Z79.01 Long term (current) use of anticoagulants

== ENCOUNTER → 2021-06-19 | Outpatient (CLI) | payer MEDICARE, OTHER ==
[2021-06-19 07:51] LABS: INR 2.82
== END ==
LOC: M LAB 06:26
PROVIDERS: ATTEND Physician Assistant
DX: Z95.2 Presence of prosthetic heart valve (principal); Z79.01 Long term (current) use of anticoagulants

== ENCOUNTER → 2021-07-25 | Outpatient (CLI) | payer MEDICARE, OTHER ==
[2021-07-25 06:57] LABS: INR 2.64; PROTHROMBIN TIME 28.5 SECONDS (12.7-14.5)
== END ==
LOC: M LAB 06:18
PROVIDERS: ATTEND Physician Assistant
DX: Z95.2 Presence of prosthetic heart valve (principal); Z79.01 Long term (current) use of anticoagulants

== ENCOUNTER → 2021-08-22 | Outpatient (CLI) | payer MEDICARE, OTHER ==
[2021-08-22 07:00] LABS: HEMATOCRIT 42.7 % (42.0-52.0); HEMOGLOBIN 14.1 g/dl (13.5-17.5); MEAN CORPUSCULAR HEMOGLOBIN 29.7 pg (27.0-33.0); MEAN CORPUSCULAR VOLUME 90.1 fl (80.0-96.0); PLATELET COUNT, AUTOMATED 184 10^3/uL (150-450); RED BLOOD COUNT 4.74 10^6/uL (4.30-6.10); WHITE BLOOD COUNT 4.6 10^3/uL (4.0-10.0)
[2021-08-22 07:15] LABS: INR 1.72; PROTHROMBIN TIME 20.6 SECONDS (12.7-14.5)
[2021-08-22 07:19] LABS: BLOOD UREA NITROGEN 23 MG/DL (7-18); CALCIUM LEVEL 9.4 MG/DL (8.8-10.2); CARBON DIOXIDE LEVEL 31 MEQ/L (21-32); CHLORIDE LEVEL 105 MEQ/L (98-107); GLOMERULAR FILTRATION RATE > 60.0 (>42); GLUCOSE, FASTING 115 MG/DL (70-100); POTASSIUM SERUM 4.3 MEQ/L (3.5-5.1); SODIUM LEVEL 143 MEQ/L (136-145)
== END ==
LOC: M LAB 06:24
PROVIDERS: ATTEND Physician Assistant
DX: Z95.2 Presence of prosthetic heart valve (principal); Z79.01 Long term (current) use of anticoagulants; I11.9 Hypertensive heart disease without heart failure

== ENCOUNTER → 2021-09-05 | Outpatient (CLI) | payer MEDICARE, OTHER ==
[2021-09-05 07:04] LABS: INR 3.25; PROTHROMBIN TIME 33.4 SECONDS (12.7-14.5)
== END ==
LOC: M LAB 06:18
PROVIDERS: ATTEND Physician Assistant
DX: Z51.81 Encounter for therapeutic drug level monitoring (principal); Z79.01 Long term (current) use of anticoagulants; Z95.2 Presence of prosthetic heart valve

== ENCOUNTER → 2021-10-09 | Outpatient (CLI) | payer MEDICARE, OTHER ==
[2021-10-09 07:14] LABS: INR 2.67; PROTHROMBIN TIME 28.8 SECONDS (12.7-14.5)
== END ==
LOC: M LAB 06:20
PROVIDERS: ATTEND Physician Assistant
DX: Z51.81 Encounter for therapeutic drug level monitoring (principal); Z79.01 Long term (current) use of anticoagulants; Z95.2 Presence of prosthetic heart valve

== ENCOUNTER → 2021-11-07 | Outpatient (CLI) | payer MEDICARE, OTHER | LOC: M LAB 06:24 | PROVIDERS: ATTEND Physician Assistant | DX: Z95.2 Presence of prosthetic heart valve (principal) ==

== ENCOUNTER → 2021-12-29 | Outpatient (CLI) | payer MEDICARE, OTHER ==
[2021-12-29 07:26] LABS: INR 2.06; PROTHROMBIN TIME 23.6 SECONDS (12.7-14.5)
== END ==
LOC: M LAB 06:25
PROVIDERS: ATTEND Physician Assistant
DX: Z79.01 Long term (current) use of anticoagulants (principal); Z95.2 Presence of prosthetic heart valve

== ENCOUNTER → 2022-02-06 | Outpatient (CLI) | payer MEDICARE, OTHER ==
[2022-02-06 11:27] LABS: BASO % 0.7 % (0.0-1.0); EOS # 0.1 10^3/uL (0.0-0.5); EOS % 1.4 % (0.0-3.0); HEMATOCRIT 44.6 % (42.0-52.0); HEMOGLOBIN 14.8 g/dl (13.5-17.5); LYMPH # 1.7 10^3/uL (1.5-5.0); LYMPH % 29.4 % (24.0-44.0); MEAN CORPUSCULAR HEMOGLOBIN 30.5 pg (27.0-33.0); MEAN CORPUSCULAR HGB CONC 33.2 g/dl (32.0-36.5); MEAN CORPUSCULAR VOLUME 91.8 fl (80.0-96.0); MONO # 0.5 10^3/uL (0.0-0.8); MONO % 9.4 % (2.0-8.0); NEUTROPHILS # 3.4 10^3/uL (1.5-8.5); NEUTROPHILS % 58.8 % (36.0-66.0); PLATELET COUNT, AUTOMATED 225 10^3/uL (150-450); RED BLOOD COUNT 4.86 10^6/uL (4.30-6.10); WHITE BLOOD COUNT 5.7 10^3/uL (4.0-10.0)
[2022-02-06 11:45] LABS: ERYTHROCYTE SEDIMENTATION RATE 4 mm/hr (0-20)
[2022-02-06 11:58] LABS: ALBUMIN 4.3 GM/DL (3.2-5.2); ALT/SGPT 29 U/L (12-78); BILIRUBIN,TOTAL 0.6 MG/DL (0.2-1.0); BLOOD UREA NITROGEN 17 MG/DL (7-18); CALCIUM LEVEL 9.6 MG/DL (8.8-10.2); CARBON DIOXIDE LEVEL 28 MEQ/L (21-32); CHLORIDE LEVEL 106 MEQ/L (98-107); CREATININE FOR GFR 0.87 MG/DL (0.70-1.30); FREE T4 0.89 NG/DL (0.76-1.46); GLOMERULAR FILTRATION RATE > 60.0 (>42); GLUCOSE, FASTING 99 MG/DL (70-100); POTASSIUM SERUM 4.4 MEQ/L (3.5-5.1); SODIUM LEVEL 141 MEQ/L (136-145)
== END ==
LOC: M RAD 10:41
PROVIDERS: ATTEND Physician Assistant
DX: R51.9 Headache, unspecified (principal); R42 Dizziness and giddiness; Z79.01 Long term (current) use of anticoagulants; R90.82 White matter disease, unspecified

== ENCOUNTER → 2022-02-16 | Outpatient (CLI) | payer MEDICARE, OTHER ==
[2022-02-16 06:50] LABS: HEMATOCRIT 42.5 % (42.0-52.0); HEMOGLOBIN 14.1 g/dl (13.5-17.5); MEAN CORPUSCULAR HEMOGLOBIN 29.7 pg (27.0-33.0); MEAN CORPUSCULAR HGB CONC 33.2 g/dl (32.0-36.5); MEAN CORPUSCULAR VOLUME 89.5 fl (80.0-96.0); PLATELET COUNT, AUTOMATED 169 10^3/uL (150-450); RED BLOOD COUNT 4.75 10^6/uL (4.30-6.10); WHITE BLOOD COUNT 4.4 10^3/uL (4.0-10.0)
[2022-02-16 07:23] LABS: ALT/SGPT 34 U/L (12-78); BILIRUBIN,TOTAL 0.7 MG/DL (0.2-1.0); BLOOD UREA NITROGEN 24 MG/DL (7-18); CALCIUM LEVEL 9.5 MG/DL (8.8-10.2); CARBON DIOXIDE LEVEL 31 MEQ/L (21-32); CHLORIDE LEVEL 106 MEQ/L (98-107); CHOLESTEROL LEVEL 195 MG/DL (<200); CHOLESTEROL RISK RATIO 3.611 (<5); CREATININE FOR GFR 0.98 MG/DL (0.70-1.30); GLOMERULAR FILTRATION RATE > 60.0 (>42); GLUCOSE, FASTING 113 MG/DL (70-100); HDL CHOLESTEROL 54 MG/DL (>40); LDL CHOLESTEROL 113 MG/DL (<100); NON-HDL-C 141 MG/DL; POTASSIUM SERUM 4.5 MEQ/L (3.5-5.1); SODIUM LEVEL 141 MEQ/L (136-145); TOTAL PROTEIN 6.9 GM/DL (6.4-8.2); TRIGLYCERIDES LEVEL 140 MG/DL (<150)
== END ==
LOC: M LAB 06:14
PROVIDERS: ATTEND Physician Assistant
DX: Q23.1 Congenital insufficiency of aortic valve (principal); I11.9 Hypertensive heart disease without heart failure; E78.00 Pure hypercholesterolemia, unspecified; Z95.2 Presence of prosthetic heart valve

== ENCOUNTER → 2022-02-16 | Outpatient (CLI) | payer MEDICARE, OTHER ==
[2022-02-16 07:00] LABS: INR 2.33; PROTHROMBIN TIME 25.9 SECONDS (12.7-14.5)
== END ==
LOC: M LAB 06:16
PROVIDERS: ATTEND Physician Assistant
DX: Z95.2 Presence of prosthetic heart valve (principal); Z79.01 Long term (current) use of anticoagulants

== ENCOUNTER → 2022-03-23 | Outpatient (CLI) | payer MEDICARE, OTHER ==
[2022-03-23 07:25] LABS: INR 2.02; PROTHROMBIN TIME 23.3 SECONDS (12.7-14.5)
== END ==
LOC: M LAB 06:21
PROVIDERS: ATTEND Physician Assistant
DX: Z95.2 Presence of prosthetic heart valve (principal); Z79.01 Long term (current) use of anticoagulants

== ENCOUNTER → 2022-04-05 | Outpatient (CLI) | payer MEDICARE, OTHER ==
[2022-04-05 07:32] LABS: INR 2.7
== END ==
LOC: M LAB 06:12
PROVIDERS: ATTEND Physician Assistant
DX: Z95.2 Presence of prosthetic heart valve (principal); Z79.01 Long term (current) use of anticoagulants

== ENCOUNTER → 2022-05-22 | Outpatient (CLI) | payer MEDICARE, OTHER ==
[2022-05-22 06:57] LABS: INR 2.61; PROTHROMBIN TIME 28.3 SECONDS (12.7-14.5)
== END ==
LOC: M LAB 06:09
PROVIDERS: ATTEND Physician Assistant
DX: Z95.2 Presence of prosthetic heart valve (principal); Z79.01 Long term (current) use of anticoagulants

== ENCOUNTER → 2022-06-19 | Outpatient (CLI) | payer MEDICARE, OTHER ==
[2022-06-19 07:10] LABS: INR 1.99
== END ==
LOC: M LAB 06:12
PROVIDERS: ATTEND Physician Assistant
DX: Z95.2 Presence of prosthetic heart valve (principal); Z79.01 Long term (current) use of anticoagulants

== ENCOUNTER → 2022-07-03 | Outpatient (CLI) | payer MEDICARE, OTHER ==
[2022-07-03 07:45] LABS: INR 2.56; PROTHROMBIN TIME 27.9 SECONDS (12.7-14.5)
== END ==
LOC: M LAB 07:08
PROVIDERS: ATTEND Physician Assistant
DX: Z95.2 Presence of prosthetic heart valve (principal)

== ENCOUNTER → 2022-07-31 | Outpatient (CLI) | payer MEDICARE, OTHER ==
[2022-07-31 08:17] LABS: INR 2.9; PROTHROMBIN TIME 30.8 SECONDS (12.5-14.5)
== END ==
LOC: M LAB 06:28
PROVIDERS: ATTEND Physician Assistant
DX: Z95.2 Presence of prosthetic heart valve (principal); Z79.01 Long term (current) use of anticoagulants

== ENCOUNTER → 2022-08-23 | Outpatient (CLI) | payer MEDICARE, OTHER ==
[2022-08-23 06:39] LABS: INR 2.44; PROTHROMBIN TIME 26.9 SECONDS (12.5-14.5)
== END ==
LOC: M LAB 06:08
PROVIDERS: ATTEND Physician Assistant
DX: Z95.2 Presence of prosthetic heart valve (principal); Z79.01 Long term (current) use of anticoagulants

== ENCOUNTER → 2022-09-07 | Outpatient (CLI) | payer MEDICARE, OTHER | LOC: M PLAIMG 12:23 | PROVIDERS: ATTEND Nurse Practitioner Family | DX: R05.1 Acute cough (principal); Z95.2 Presence of prosthetic heart valve ==

== ENCOUNTER → 2022-09-24 | Outpatient (CLI) | payer MEDICARE, OTHER ==
[2022-09-24 07:04] LABS: INR 2.51; PROTHROMBIN TIME 27.5 SECONDS (12.5-14.5)
== END ==
LOC: M LAB 06:07
PROVIDERS: ATTEND Physician Assistant
DX: Q23.1 Congenital insufficiency of aortic valve (principal); Z95.2 Presence of prosthetic heart valve; Z79.01 Long term (current) use of anticoagulants

== ENCOUNTER → 2022-10-23 | Outpatient (CLI) | payer MEDICARE, OTHER ==
[2022-10-23 06:56] LABS: INR 3.19; PROTHROMBIN TIME 33.2 SECONDS (12.5-14.5)
== END ==
LOC: M LAB 06:10
PROVIDERS: ATTEND Physician Assistant
DX: Q23.1 Congenital insufficiency of aortic valve (principal); Z95.2 Presence of prosthetic heart valve; Z79.01 Long term (current) use of anticoagulants

== ENCOUNTER → 2022-11-23 | Outpatient (CLI) | payer MEDICARE, OTHER ==
[2022-11-23 07:22] LABS: INR 1.82; PROTHROMBIN TIME 21.4 SECONDS (12.5-14.5)
== END ==
LOC: M LAB 06:12
PROVIDERS: ATTEND Physician Assistant
DX: Q23.1 Congenital insufficiency of aortic valve (principal); Z95.2 Presence of prosthetic heart valve; Z79.01 Long term (current) use of anticoagulants

== ENCOUNTER → 2022-11-23 | Outpatient (CLI) | payer MEDICARE, OTHER ==
[2022-11-23 07:37] LABS: HEMOGLOBIN A1c 5.9 % (4.0-6.0)
[2022-11-23 07:38] LABS: BLOOD UREA NITROGEN 32 MG/DL (9-23); CALCIUM LEVEL 9.3 MG/DL (8.3-10.6); CARBON DIOXIDE LEVEL 24 MMOL/L (20-31); CHLORIDE LEVEL 104 MMOL/L (98-107); GLOMERULAR FILTRATION RATE > 60.0 (>42); GLUCOSE, FASTING 175 MG/DL (74-106); POTASSIUM SERUM 4.7 MMOL/L (3.5-5.1); SODIUM LEVEL 137 MMOL/L (136-145)
== END ==
LOC: M LAB 06:18
PROVIDERS: ATTEND Family Medicine
DX: Z00.00 Encounter for general adult medical examination without abnormal findings (principal); Z12.5 Encounter for screening for malignant neoplasm of prostate; I10 Essential (primary) hypertension; R73.01 Impaired fasting glucose; Q23.1 Congenital insufficiency of aortic valve; Z95.2 Presence of prosthetic heart valve; Z79.01 Long term (current) use of anticoagulants
CPT/HCPCS: 36415; 80048; 83036; 85610; G0103

== ENCOUNTER → 2022-12-12 | Outpatient (CLI) | payer MEDICARE, OTHER ==
[2022-12-12 07:54] LABS: INR 2.58; PROTHROMBIN TIME 28.1 SECONDS (12.5-14.5)
== END ==
LOC: M LAB 06:06
PROVIDERS: ATTEND Internal Medicine Cardiovascular Disease
DX: Q23.1 Congenital insufficiency of aortic valve (principal)

== ENCOUNTER → 2023-01-11 | Outpatient (REF) | payer MEDICARE, OTHER | LOC: M LAB REF 13:50 | PROVIDERS: ATTEND Registered Nurse | DX: R19.7 Diarrhea, unspecified (principal) ==

== ENCOUNTER → 2023-01-22 | Outpatient (CLI) | payer MEDICARE, OTHER ==
[2023-01-22 06:50] LABS: INR 2.11
== END ==
LOC: M LAB 06:09
PROVIDERS: ATTEND Physician Assistant
DX: Q23.1 Congenital insufficiency of aortic valve (principal); Z95.2 Presence of prosthetic heart valve; Z79.01 Long term (current) use of anticoagulants

== ENCOUNTER → 2023-02-07 | Outpatient (CLI) | payer MEDICARE, OTHER ==
[2023-02-07 07:09] LABS: INR 2.54; PROTHROMBIN TIME 27.8 SECONDS (12.5-14.5)
== END ==
LOC: M LAB 06:18
PROVIDERS: ATTEND Physician Assistant
DX: Q23.1 Congenital insufficiency of aortic valve (principal); Z95.2 Presence of prosthetic heart valve; Z79.01 Long term (current) use of anticoagulants

== ENCOUNTER → 2023-02-22 | Outpatient (CLI) | payer MEDICARE, OTHER | LOC: M WUC 15:13 | PROVIDERS: ATTEND Nurse Practitioner Family | DX: M25.552 Pain in left hip (principal) ==

== ENCOUNTER → 2023-03-05 | Outpatient (CLI) | payer MEDICARE, OTHER ==
[2023-03-05 08:51] LABS: HEMATOCRIT 43.2 % (42.0-52.0); HEMOGLOBIN 14.4 g/dl (13.5-17.5); MEAN CORPUSCULAR HEMOGLOBIN 30.4 pg (27.0-33.0); MEAN CORPUSCULAR HGB CONC 33.3 g/dl (32.0-36.5); MEAN CORPUSCULAR VOLUME 91.1 fl (80.0-96.0); PLATELET COUNT, AUTOMATED 203 10^3/uL (150-450); RED BLOOD COUNT 4.74 10^6/uL (4.30-6.10)
[2023-03-05 09:06] LABS: INR 3.05
[2023-03-05 09:15] LABS: ALBUMIN 4.3 G/DL (3.2-5.2); ALKALINE PHOSPHATASE 41 U/L (46-116); ALT/SGPT 36 U/L (7.0-40); AST/SGOT 30 U/L (<34); BILIRUBIN,TOTAL 0.9 MG/DL (0.3-1.2); BLOOD UREA NITROGEN 24 MG/DL (9-23); CARBON DIOXIDE LEVEL 28 MMOL/L (20-31); CHLORIDE LEVEL 104 MMOL/L (98-107); CHOLESTEROL LEVEL 217 MG/DL (<200); CHOLESTEROL RISK RATIO 3.51 (<5); CREATININE FOR GFR 0.93 MG/DL (0.70-1.30); GLOMERULAR FILTRATION RATE > 60.0 (>42); GLUCOSE, FASTING 106 MG/DL (74-106); HDL CHOLESTEROL 61.7 MG/DL (>40); LDL CHOLESTEROL 110.7 MG/DL (<100); NON-HDL-C 155.3 MG/DL; POTASSIUM SERUM 4.3 MMOL/L (3.5-5.1); SODIUM LEVEL 138 MMOL/L (136-145); TOTAL PROTEIN 6.7 G/DL (5.7-8.2); TRIGLYCERIDES LEVEL 223 MG/DL (<150)
== END ==
LOC: M LAB 07:59
PROVIDERS: ATTEND Physician Assistant
DX: Q23.1 Congenital insufficiency of aortic valve (principal); I11.9 Hypertensive heart disease without heart failure; E78.00 Pure hypercholesterolemia, unspecified; Z95.2 Presence of prosthetic heart valve; Z79.01 Long term (current) use of anticoagulants

== ENCOUNTER → 2023-03-27 | Outpatient (CLI) | payer MEDICARE, OTHER ==
[2023-03-27 06:57] LABS: PROTHROMBIN TIME 47.2 SECONDS (12.5-14.5)
[2023-03-27 07:53] LABS: INR 5.01
== END ==
LOC: M LAB 06:15
PROVIDERS: ATTEND Physician Assistant
DX: Q23.1 Congenital insufficiency of aortic valve (principal); Z95.2 Presence of prosthetic heart valve; Z79.01 Long term (current) use of anticoagulants

== ENCOUNTER → 2023-04-02 | Outpatient (CLI) | payer MEDICARE, OTHER ==
[2023-04-02 06:52] LABS: INR 1.41; PROTHROMBIN TIME 17.5 SECONDS (12.5-14.5)
== END ==
LOC: M LAB 06:07
PROVIDERS: ATTEND Physician Assistant
DX: Z79.01 Long term (current) use of anticoagulants (principal); Q23.1 Congenital insufficiency of aortic valve; Z95.2 Presence of prosthetic heart valve

== ENCOUNTER → 2023-04-12 | Outpatient (CLI) | payer MEDICARE, OTHER ==
[2023-04-12 06:51] LABS: INR 2.67; PROTHROMBIN TIME 28.9 SECONDS (12.5-14.5)
== END ==
LOC: M LAB 06:14
PROVIDERS: ATTEND Physician Assistant
DX: Q23.1 Congenital insufficiency of aortic valve (principal); Z95.2 Presence of prosthetic heart valve; Z79.01 Long term (current) use of anticoagulants

== ENCOUNTER → 2023-05-10 | Outpatient (CLI) | payer MEDICARE, OTHER ==
[2023-05-10 10:23] LABS: INR 2.83; PROTHROMBIN TIME 30.2 SECONDS (12.5-14.5)
[2023-05-10 10:39] LABS: HEMOGLOBIN A1c 5.5 % (4.0-6.0)
== END ==
LOC: M LAB 09:33
PROVIDERS: ATTEND Family Medicine
DX: Q23.1 Congenital insufficiency of aortic valve (principal); Z95.2 Presence of prosthetic heart valve; Z79.01 Long term (current) use of anticoagulants; R73.9 Hyperglycemia, unspecified

== ENCOUNTER → 2023-06-28 | Outpatient (CLI) | payer MEDICARE, OTHER ==
[2023-06-28 07:05] LABS: INR 4.97; PROTHROMBIN TIME 45.2 SECONDS (12.5-14.5)
== END ==
LOC: M LAB 06:10
PROVIDERS: ATTEND Physician Assistant
DX: Q23.1 Congenital insufficiency of aortic valve (principal); Z95.2 Presence of prosthetic heart valve; Z79.01 Long term (current) use of anticoagulants

== ENCOUNTER → 2023-08-06 | Outpatient (CLI) | payer MEDICARE, OTHER ==
[2023-08-06 07:01] LABS: INR 2.29; PROTHROMBIN TIME 24.4 SECONDS (12.5-14.5)
== END ==
LOC: M LAB 06:13
PROVIDERS: ATTEND Physician Assistant
DX: Q23.1 Congenital insufficiency of aortic valve (principal); Z95.2 Presence of prosthetic heart valve; Z79.01 Long term (current) use of anticoagulants

== ENCOUNTER → 2023-08-14 | Outpatient (CLI) | payer MEDICARE, OTHER ==
[2023-08-14 10:23] LABS: HEMATOCRIT 40.8 % (42.0-52.0); HEMOGLOBIN 13.4 g/dl (13.5-17.5); MEAN CORPUSCULAR HEMOGLOBIN 29.8 pg (27.0-33.0); MEAN CORPUSCULAR HGB CONC 32.8 g/dl (32.0-36.5); MEAN CORPUSCULAR VOLUME 90.9 fl (80.0-96.0); PLATELET COUNT, AUTOMATED 220 10^3/uL (150-450); RED BLOOD COUNT 4.49 10^6/uL (4.30-6.10); WHITE BLOOD COUNT 9.7 10^3/uL (4.0-10.0)
[2023-08-14 10:34] LABS: INR 2.48; PROTHROMBIN TIME 25.9 SECONDS (12.5-14.5)
[2023-08-14 10:41] LABS: BLOOD UREA NITROGEN 28 MG/DL (9-23); CALCIUM LEVEL 9.1 MG/DL (8.3-10.6); CARBON DIOXIDE LEVEL 28 MMOL/L (20-31); CHLORIDE LEVEL 106 MMOL/L (98-107); CREATININE FOR GFR 0.91 MG/DL (0.70-1.30); GLOMERULAR FILTRATION RATE > 60.0 (>42); GLUCOSE, FASTING 169 MG/DL (74-106); POTASSIUM SERUM 4.1 MMOL/L (3.5-5.1); SODIUM LEVEL 142 MMOL/L (136-145)
== END ==
LOC: M LAB 09:37
PROVIDERS: ATTEND Physician Assistant
DX: Q23.1 Congenital insufficiency of aortic valve (principal); I11.9 Hypertensive heart disease without heart failure; Z95.2 Presence of prosthetic heart valve

== ENCOUNTER → 2023-09-02 | Outpatient (CLI) | payer MEDICARE, OTHER ==
[2023-09-02 07:41] LABS: INR 3.3; PROTHROMBIN TIME 32.3 SECONDS (12.5-14.5)
== END ==
LOC: M LAB 06:10
PROVIDERS: ATTEND Physician Assistant
DX: Q23.1 Congenital insufficiency of aortic valve (principal); Z95.2 Presence of prosthetic heart valve; Z79.01 Long term (current) use of anticoagulants

== ENCOUNTER → 2023-09-24 | Outpatient (CLI) | payer MEDICARE, OTHER ==
[2023-09-24 12:54] LABS: INR 2.65; PROTHROMBIN TIME 27.3 SECONDS (12.5-14.5)
== END ==
LOC: M LAB 12:06
PROVIDERS: ATTEND Physician Assistant
DX: Z95.2 Presence of prosthetic heart valve (principal); Z79.01 Long term (current) use of anticoagulants

== ENCOUNTER → 2023-11-19 | Outpatient (CLI) | payer MEDICARE, OTHER ==
[2023-11-19 06:46] LABS: INR 1.58; PROTHROMBIN TIME 18.4 SECONDS (12.5-14.5)
== END ==
LOC: M LAB 06:07
PROVIDERS: ATTEND Physician Assistant
DX: Z95.2 Presence of prosthetic heart valve (principal); Z79.01 Long term (current) use of anticoagulants

== ENCOUNTER → 2023-11-26 | Outpatient (CLI) | payer MEDICARE, OTHER ==
[2023-11-26 07:48] LABS: BASO # 0.1 10^3/uL (0.0-0.2); EOS # 0.2 10^3/uL (0.0-0.5); EOS % 4.8 % (0.0-3.0); HEMATOCRIT 43.1 % (42.0-52.0); HEMOGLOBIN 14.4 g/dl (13.5-17.5); LYMPH # 1.8 10^3/uL (1.5-5.0); LYMPH % 36.4 % (24.0-44.0); MEAN CORPUSCULAR HEMOGLOBIN 30.2 pg (27.0-33.0); MEAN CORPUSCULAR HGB CONC 33.4 g/dl (32.0-36.5); MEAN CORPUSCULAR VOLUME 90.4 fl (80.0-96.0); MONO # 0.5 10^3/uL (0.0-0.8); MONO % 9.8 % (2.0-8.0); NEUTROPHILS # 2.4 10^3/uL (1.5-8.5); NEUTROPHILS % 47.4 % (36.0-66.0); PLATELET COUNT, AUTOMATED 193 10^3/uL (150-450); RED BLOOD COUNT 4.77 10^6/uL (4.30-6.10)
[2023-11-26 08:00] LABS: INR 1.93; PROTHROMBIN TIME 21.4 SECONDS (12.5-14.5)
[2023-11-26 08:03] LABS: ERYTHROCYTE SEDIMENTATION RATE 10 mm/hr (0-20)
[2023-11-26 08:15] LABS: ALBUMIN 4.1 G/DL (3.2-5.2); ALKALINE PHOSPHATASE 40 U/L (46-116); ALT/SGPT 27 U/L (7.0-40); AST/SGOT 21 U/L (<34); BILIRUBIN,TOTAL 0.6 MG/DL (0.3-1.2); BLOOD UREA NITROGEN 21 MG/DL (9-23); CALCIUM LEVEL 8.8 MG/DL (8.3-10.6); CARBON DIOXIDE LEVEL 31 MMOL/L (20-31); CHLORIDE LEVEL 106 MMOL/L (98-107); GLOMERULAR FILTRATION RATE > 60.0 (>42); GLUCOSE, FASTING 108 MG/DL (74-106); POTASSIUM SERUM 4.4 MMOL/L (3.5-5.1); SODIUM LEVEL 140 MMOL/L (136-145); TOTAL PROTEIN 6.4 G/DL (5.7-8.2)
== END ==
LOC: M RAD 07:01
PROVIDERS: ATTEND Registered Nurse
DX: Z01.818 Encounter for other preprocedural examination (principal); Z79.01 Long term (current) use of anticoagulants

== ENCOUNTER → 2023-12-02 | Outpatient (CLI) | payer MEDICARE, OTHER ==
[2023-12-02 07:34] LABS: HEMATOCRIT 44.8 % (42.0-52.0); HEMOGLOBIN 14.7 g/dl (13.5-17.5); MEAN CORPUSCULAR HEMOGLOBIN 30.1 pg (27.0-33.0); MEAN CORPUSCULAR HGB CONC 32.8 g/dl (32.0-36.5); MEAN CORPUSCULAR VOLUME 91.6 fl (80.0-96.0); PLATELET COUNT, AUTOMATED 192 10^3/uL (150-450); RED BLOOD COUNT 4.89 10^6/uL (4.30-6.10); WHITE BLOOD COUNT 5.4 10^3/uL (4.0-10.0)
[2023-12-02 07:39] LABS: ERYTHROCYTE SEDIMENTATION RATE 4 mm/hr (0-20)
[2023-12-02 07:45] LABS: INR 2.19; PROTHROMBIN TIME 23.6 SECONDS (12.5-14.5)
[2023-12-02 08:01] LABS: ALBUMIN 4.2 G/DL (3.2-5.2); ALKALINE PHOSPHATASE 37 U/L (46-116); ALT/SGPT 31 U/L (7.0-40); AST/SGOT 24 U/L (<34); BILIRUBIN,TOTAL 0.7 MG/DL (0.3-1.2); BLOOD UREA NITROGEN 20 MG/DL (9-23); CALCIUM LEVEL 9.7 MG/DL (8.3-10.6); CARBON DIOXIDE LEVEL 31 MMOL/L (20-31); CHLORIDE LEVEL 106 MMOL/L (98-107); CREATININE FOR GFR 0.96 MG/DL (0.70-1.30); GLOMERULAR FILTRATION RATE > 60.0 (>42); GLUCOSE, FASTING 110 MG/DL (74-106); POTASSIUM SERUM 4.5 MMOL/L (3.5-5.1); SODIUM LEVEL 141 MMOL/L (136-145); TOTAL PROTEIN 6.5 G/DL (5.7-8.2)
== END ==
LOC: M EKG 06:15
PROVIDERS: ATTEND Orthopaedic Surgery
DX: Z01.818 Encounter for other preprocedural examination (principal); M17.12 Unilateral primary osteoarthritis, left knee; I44.4 Left anterior fascicular block; Z79.01 Long term (current) use of anticoagulants

== ENCOUNTER → 2023-12-05 | Outpatient (CLI) | payer MEDICARE, OTHER ==
[2023-12-05 07:15] LABS: INR 1.63; PROTHROMBIN TIME 18.8 SECONDS (12.5-14.5)
== END ==
LOC: M LAB 06:01
PROVIDERS: ATTEND Physician Assistant
DX: Z95.2 Presence of prosthetic heart valve (principal); Z79.01 Long term (current) use of anticoagulants

== ENCOUNTER → 2023-12-16 | Outpatient (CLI) | payer MEDICARE, OTHER ==
[2023-12-16 08:01] LABS: INR 2.27; PROTHROMBIN TIME 24.3 SECONDS (12.5-14.5)
== END ==
LOC: M LAB 05:59
PROVIDERS: ATTEND Physician Assistant
DX: Z95.2 Presence of prosthetic heart valve (principal); Z79.01 Long term (current) use of anticoagulants

== ENCOUNTER → 2023-12-27 | Outpatient (CLI) | payer MEDICARE, OTHER ==
[2023-12-27 15:16] LABS: INR 1.94; PARTIAL THROMBOPLASTIN TIME 41.6 SECONDS (24.8-34.2); PROTHROMBIN TIME 21.5 SECONDS (12.5-14.5)
== END ==
LOC: M PLALAB 12:02
PROVIDERS: ATTEND Orthopaedic Surgery
DX: Z47.1 Aftercare following joint replacement surgery (principal); Z96.60 Presence of unspecified orthopedic joint implant; Z79.01 Long term (current) use of anticoagulants

== ENCOUNTER → 2023-12-31 | Outpatient (CLI) | payer MEDICARE, OTHER ==
[2023-12-31 11:06] LABS: INR 1.37; PROTHROMBIN TIME 16.4 SECONDS (12.5-14.5)
== END ==
LOC: M LAB 10:33
PROVIDERS: ATTEND Physician Assistant
DX: Z95.2 Presence of prosthetic heart valve (principal); Z79.01 Long term (current) use of anticoagulants

== ENCOUNTER → 2024-01-07 | Outpatient (CLI) | payer MEDICARE, OTHER ==
[2024-01-07 11:56] LABS: INR 1.55
== END ==
LOC: M LAB 10:32
PROVIDERS: ATTEND Physician Assistant
DX: Z95.2 Presence of prosthetic heart valve (principal); Z79.01 Long term (current) use of anticoagulants

== ENCOUNTER → 2024-01-16 | Outpatient (CLI) | payer MEDICARE, OTHER ==
[2024-01-16 14:39] LABS: INR 1.92; PROTHROMBIN TIME 21.3 SECONDS (12.5-14.5)
== END ==
LOC: M LAB 13:59
PROVIDERS: ATTEND Physician Assistant
DX: Z95.2 Presence of prosthetic heart valve (principal)

== ENCOUNTER → 2024-02-10 | Outpatient (CLI) | payer MEDICARE, OTHER ==
[2024-02-10 08:42] LABS: HEMATOCRIT 37.6 % (42.0-52.0); MEAN CORPUSCULAR HEMOGLOBIN 29.1 pg (27.0-33.0); MEAN CORPUSCULAR HGB CONC 31.9 g/dl (32.0-36.5); MEAN CORPUSCULAR VOLUME 91.3 fl (80.0-96.0); PLATELET COUNT, AUTOMATED 234 10^3/uL (150-450); RED BLOOD COUNT 4.12 10^6/uL (4.30-6.10); WHITE BLOOD COUNT 4.5 10^3/uL (4.0-10.0)
[2024-02-10 09:12] LABS: ALBUMIN 3.5 G/DL (3.2-5.2); ALKALINE PHOSPHATASE 61 U/L (46-116); ALT/SGPT 19 U/L (7.0-40); AST/SGOT 18 U/L (<34); BILIRUBIN,TOTAL 0.5 MG/DL (0.3-1.2); BLOOD UREA NITROGEN 15 MG/DL (9-23); CALCIUM LEVEL 9.3 MG/DL (8.3-10.6); CARBON DIOXIDE LEVEL 29 MMOL/L (20-31); CHLORIDE LEVEL 108 MMOL/L (98-107); CHOLESTEROL LEVEL 172 MG/DL (<200); CHOLESTEROL RISK RATIO 3.95 (<5); CREATININE FOR GFR 0.85 MG/DL (0.70-1.30); GLOMERULAR FILTRATION RATE > 60.0 (>42); GLUCOSE, FASTING 112 MG/DL (74-106); HDL CHOLESTEROL 43.5 MG/DL (>40); LDL CHOLESTEROL 96.1 MG/DL (<100); NON-HDL-C 128.5 MG/DL; POTASSIUM SERUM 4.3 MMOL/L (3.5-5.1); SODIUM LEVEL 142 MMOL/L (136-145); TOTAL PROTEIN 6.1 G/DL (5.7-8.2); TRIGLYCERIDES LEVEL 162 MG/DL (<150)
== END ==
LOC: M LAB 08:09
PROVIDERS: ATTEND Physician Assistant
DX: Q23.1 Congenital insufficiency of aortic valve (principal); I11.9 Hypertensive heart disease without heart failure; E78.00 Pure hypercholesterolemia, unspecified; Z95.2 Presence of prosthetic heart valve

== ENCOUNTER → 2024-07-14 | Outpatient (CLI) | payer MEDICARE, OTHER | LOC: M WUC 08:52 | PROVIDERS: ATTEND Physician Assistant | DX: M25.532 Pain in left wrist (principal) ==

== ENCOUNTER → 2024-09-09 | Outpatient (CLI) | payer MEDICARE, OTHER ==
[2024-09-09 10:07] LABS: HEMATOCRIT 43.8 % (42.0-52.0); HEMOGLOBIN 14.4 g/dl (13.5-17.5); MEAN CORPUSCULAR HEMOGLOBIN 30.6 pg (27.0-33.0); MEAN CORPUSCULAR HGB CONC 32.9 g/dl (32.0-36.5); PLATELET COUNT, AUTOMATED 213 10^3/uL (150-450); RED BLOOD COUNT 4.71 10^6/uL (4.30-6.10)
[2024-09-09 10:39] LABS: BLOOD UREA NITROGEN 19 MG/DL (9-23); CALCIUM LEVEL 9.6 MG/DL (8.3-10.6); CARBON DIOXIDE LEVEL 32 MMOL/L (20-31); CHLORIDE LEVEL 108 MMOL/L (98-107); CREATININE FOR GFR 0.95 MG/DL (0.70-1.30); GLOMERULAR FILTRATION RATE > 60.0 (>42); GLUCOSE, FASTING 91 MG/DL (74-106); POTASSIUM SERUM 4.7 MMOL/L (3.5-5.1); SODIUM LEVEL 144 MMOL/L (136-145)
== END ==
LOC: M LAB 09:47
PROVIDERS: ATTEND Physician Assistant
DX: Q23.1 Congenital insufficiency of aortic valve (principal); I11.9 Hypertensive heart disease without heart failure; Z95.2 Presence of prosthetic heart valve

== ENCOUNTER → 2024-12-16 | Outpatient (CLI) | payer MEDICARE, OTHER | LOC: M CARPUL 11:12 | PROVIDERS: ATTEND Physician Assistant | DX: Q23.1 Congenital insufficiency of aortic valve (principal); Z95.2 Presence of prosthetic heart valve ==

== ENCOUNTER → 2024-12-25 | Outpatient (CLI) | payer MEDICARE, OTHER | LOC: M SLEEP HO 08:30 | PROVIDERS: ATTEND Physician Assistant | DX: G47.33 Obstructive sleep apnea (adult) (pediatric) (principal); I27.29 Other secondary pulmonary hypertension ==

== ENCOUNTER → 2025-02-17 | Outpatient (CLI) | payer MEDICARE, OTHER | LOC: M SLEEP 20:00 | PROVIDERS: ATTEND Physician Assistant | DX: G47.33 Obstructive sleep apnea (adult) (pediatric) (principal) ==

== ENCOUNTER → 2025-05-18 | Outpatient (CLI) | payer MEDICARE, OTHER ==
[~2025-05-18] MED LIST changes: +LISI40TA10 PO; -LISI40TA4 PO
== END ==
LOC: M SLEEP 20:00
PROVIDERS: ATTEND Physician Assistant
DX: G47.33 Obstructive sleep apnea (adult) (pediatric) (principal); R06.83 Snoring

== ENCOUNTER → 2025-05-25 | Outpatient (CLI) | payer MEDICARE, OTHER ==
[2025-05-25 08:02] LABS: BASO # 0.1 10^3/uL (0.0-0.2); BASO % 0.9 % (0.0-1.0); EOS # 0.1 10^3/uL (0.0-0.5); EOS % 1.6 % (0.0-3.0); LYMPH # 1.6 10^3/uL (1.5-5.0); LYMPH % 28.0 % (24.0-44.0); MONO # 0.5 10^3/uL (0.0-0.8); MONO % 9.4 % (2.0-8.0); NEUTROPHILS # 3.4 10^3/uL (1.5-8.5); NEUTROPHILS % 59.1 % (36.0-66.0); PLATELET COUNT, AUTOMATED 200 10^3/uL (150-450)
[2025-05-25 08:35] LABS: ALT/SGPT 24.0 U/L (7.0-40); AST/SGOT 24.0 U/L (<34); CALCIUM LEVEL 8.8 MG/DL (8.3-10.6); CARBON DIOXIDE LEVEL 32.0 MMOL/L (20-31); CHLORIDE LEVEL 103.0 MMOL/L (98-107); CHOLESTEROL LEVEL 208.0 MG/DL (<200); CHOLESTEROL RISK RATIO 3.44 (<5); CREATININE FOR GFR 1.07 MG/DL (0.70-1.30); GLOMERULAR FILTRATION RATE 73.3 (>42); IRON (FE) 94.0 UG/DL (65-175); LDL CHOLESTEROL 124.2 MG/DL (<100); MAGNESIUM LEVEL 2.0 MG/DL (1.8-2.4); NON-HDL-C 147.6 MG/DL; PERCENT SATURATION 28.4 % (19.7-50.0); POTASSIUM SERUM 4.7 MMOL/L (3.5-5.1); SODIUM LEVEL 144.0 MMOL/L (136-145); TRIGLYCERIDES LEVEL 117.0 MG/DL (<150)
[2025-05-25 08:37] LABS: FREE T4 1.36 NG/DL (0.89-1.76)
== END ==
LOC: M LAB 06:40
PROVIDERS: ATTEND Nurse Practitioner Family
DX: R42 Dizziness and giddiness (principal); Z79.899 Other long term (current) drug therapy; R53.83 Other fatigue